=== PATIENT | female | born 1990 ===

== ENCOUNTER 2021-09-13 16:19 | Emergency (ER) | payer OTHER ==
[~2021-09-13] VITALS: Ht 160 cm; Wt 83.9 kg
[2021-09-13 19:22] VITALS: BP 132/87
== END 2021-09-13 21:15 | disposition home or self-care (01) ==
LOC: EEVIPCON 16:19 → ER 16:19
DX: G51.0 Bell's palsy (principal)
CPT/HCPCS: 70450